=== PATIENT | female | born 1990 ===

== ENCOUNTER 2020-09-14 15:55 | Emergency (ER) | payer OTHER ==
[~2020-09-14 15:55] MED LIST: ABILIFY5 MG PO; ACETAMINOPHEN500 M1 PO; CYMBALTA60 MG PO; VISTARIL50 MG PO
[2020-09-14] MEDS ORDERED: NYSTOP TOPICAL30 GM TOP (17:12)
[2020-09-14] MEDS ORDERED: DIFLUCAN 100MG100 MG PO (17:12)
== END 2020-09-14 18:31 | disposition home or self-care (01) ==
LOC: FER 15:55
DX: B35.4 Tinea corporis (principal); E66.9 Obesity, unspecified; Z88.8 Allergy status to other drugs, medicaments and biological substances
CPT/HCPCS: 99282